=== PATIENT | male | born 1965 | race Caucasian/White ===

== ENCOUNTER 2018-08-06 21:31 | Emergency (ER) | payer OTHER ==
[2018-08-06] MEDS ORDERED: ACETAMINOPHEN 325 MG TABLET (FP) PO ONE (21:40)
--- NOTE | 2018-08-06 21:40 | PDOC ---
Rapid Medical Evaluation Time Seen by Provider: 08/06/18 21:38 Medical Evaluation: 08/06/18 21:38 I have performed a brief in-person evaluation of this patient. The patient presents with a chief complaint of: fall Pertinent physical exam findings:stable and in NAD, non-focal I have ordered the following: tylenol The patient will proceed to the ED for further evaluation.
[2018-08-06 21:42] VITALS: BP 144/82; PULSE 77; TEMP 98; BMI 22.4
[2018-08-06] MEDS ORDERED: ACETAMINOPHEN 325 MG TABLET (FP) ONE (21:45)
[2018-08-06] MEDS ORDERED: oxyCODONE HCL 5 MG TABLET PO ONE (22:09)
[2018-08-06] MEDS ORDERED: LIDOCAINE 5% TOPICAL PATCH TP ONE (22:18)
--- NOTE | 2018-08-06 22:23 | PDOC ---
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) Past History - Past Medical History Allergies/Adverse Reactions: Allergies Allergy/AdvReac Type Severity Reaction Status Date / Time No Known Allergies Allergy Verified 08/06/18 21:42 Home Medications: Ambulatory Orders Cyclobenzaprine HCl [Flexeril -] 10 mg PO TID PRN #21 tablet 08/07/18 Lidocaine 5% Patch [Lidoderm -] 1 patch TP DAILY #30 patch 08/07/18 COPD: No - Suicide/Smoking/Psychosocial Hx Smoking History: Unknown if ever smoked Have you smoked in the past 12 months: No Information on smoking cessation initiated: No Hx Alcohol Use: No Drug/Substance Use Hx: No *Physical Exam - Vital Signs Last Vital Signs Temp Pulse Resp BP Pulse Ox 98.0 F 77 16 144/82 100 08/06/18 21:40 08/06/18 21:40 08/06/18 21:40 08/06/18 21:40 08/06/18 21:40 - Physical Exam General Appearance: No: Apparent Distress HEENT: positive: EOMI, ALEKSANDR Neck: positive: Tender midline Respiratory/Chest: positive: Chest Tender (along L chest wall, no ecchymosis, no palpable step-off), Lungs Clear. negative: Respiratory Distress Cardiovascular: positive: Regular Rhythm, Regular Rate, S1, S2. negative: Murmur Gastrointestinal/Abdominal: positive: Soft, Other (no ecchymosis noted). 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, Fully Oriented, Alert, Normal Mood/ Affect, Motor Strength 5/5 ED Treatment Course - RADIOLOGY Radiology Studies Ordered: Category Date Time Status CERVICAL SPINE CT W/O CONTR [CT] Stat CT Scan 08/06/18 22:[address] WITHOUT CONTRAST [CT] Stat CT Scan 08/06/18 22:[address] W/O CONTRAST [CT] Stat CT Scan 08/06/18 22:[address] W/O CONTRAST [CT] Stat CT Scan 08/06/18 22:09 Ordered - Medications Given in the ED: ED Medications Discontinued Medications Generic Name Dose Route Start Last Admin Trade Name Audrey PRN Reason Stop Dose Admin Acetaminophen 650 mg 08/06/18 21:40 08/06/18 21:50 Tylenol - PO 08/06/18 21:41 650 mg ONCE ONE Administration Medical Decision Making - Medical Decision Making 53 y/o M with no sig pmh presents s/p fall today. 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 States the wooden plank gave out, and patient fell forward, landing in wheelbarrow. Is c/o pain along the spine and L side of chest wall. Denies head trauma, LOC, numbness/tingling/weakness of extremities, abdominal pain, n/v, changes to vision. Concern for possible rib/spinal fracture Was given Tylenol from triage Plan: Patient placed in C-collar, Oxycodone, Lidocaine patch, CT of the full spine and CT chest, reassess 08/06/18 22:20 CT chest/C-spine/T-spine/L-spine showed no fractures Likely muscular sprain Stable for dc 08/07/18 00:43 *DC/Admit/Observation/Transfer Diagnosis at time of Disposition: Fall Qualifiers: Encounter type: initial encounter Qualified Code(s): W19.XXXA - Unspecified fall, initial encounter - Discharge Dispostion Disposition: HOME Condition at time of disposition: Stable Decision to Admit order: No - Prescriptions Prescriptions: Cyclobenzaprine HCl [Flexeril -] 10 mg PO TID PRN #21 tablet PRN Reason: Muscle Spasms Lidocaine 5% Patch [Lidoderm -] 1 patch TP DAILY #30 patch - Referrals Referrals: Peri Lr MD [Staff Physician] - 2 Days - Patient Instructions Printed Discharge Instructions: DI for Back Strain or Sprain Additional Instructions: Thank you for choosing [facility]. It was a pleasure taking care of you. You may take Motrin 600 mg every 6 hours by mouth as needed for mild to moderate pain. Take Motrin with food. Take Flexeril as needed for muscle spasms. This medication can also make you drowsy so please be cautious with driving or performing heavy physical work. Apply Lidocaine patch as needed over area causing most pain - can be used for 12 hours Return to the Emergency Department if your symptoms worsen or persist, weakness of extremities, unable to walk, unable to control bowel or bladder movements or other concerning symptoms. Mayra por elegir el [facility]. Fue un placer cuidar de ti. Puede micaela Motrin 600 mg cada 6 horas por va oral segn sea necesario para el dolor leve a moderado. [place] Motrin con la comida. [place] Flexeril segn sea necesario para los espasmos musculares. Brionna medicamento tambin puede causarle somnolencia, as que tenga cuidado al conducir o realizar trabajos fsicos pesados. Aplique el parche de lidocana segn sea necesario sobre el wayne que causa ms dolor, se puede usar eri 12 horas Regrese al Departamento de Emergencias si nimo sntomas empeoran o persisten, debilidad de las extremidades, no puede caminar, no puede controlar los movimientos del intestino o la vejiga u otros sntomas relacionados. - Post Discharge Activity Forms/Work/School Notes: Back to Work
[2018-08-06] MEDS ORDERED: LIDOCAINE 5% TOPICAL PATCH ONE (22:27)
[2018-08-06] MEDS ORDERED: oxyCODONE HCL 5 MG TABLET ONE (22:27)
== END 2018-08-07 00:50 | disposition home or self-care (01) ==
LOC: JER 21:31
DX: Z04.2 Encounter for examination and observation following work accident (principal)
CPT/HCPCS: 71250-TC; 72125-TC; 72128-TC; 72131-TC; 99281-25

== ENCOUNTER 2018-08-09 14:49 | Emergency (ER) | payer SELFPAY, OTHER | END 2018-08-09 16:25 | disposition home or self-care (01) | LOC: JERFT 14:49 ==

== ENCOUNTER 2018-08-28 05:48 | Emergency (ER) | payer SELFPAY, OTHER | END 2018-08-28 11:35 | disposition home or self-care (01) | LOC: JER 05:48 ==

== ENCOUNTER 2018-09-15 15:06 | Inpatient (IN) | payer OTHER ==
--- NOTE | 2018-09-15 15:26 | PDOC ---
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 Patient did not take anything for pain. Patient report was seen over week ago with back pain due to fall at work and was told everything was fine. Denies shortness of breath, dizziness, headache. Denies new injury or trauma. Denies numbness or tingling sensation. Denies arm weakness. Timing/Duration: 24 hours Past History - Past Medical History Allergies/Adverse Reactions: Allergies Allergy/AdvReac Type Severity Reaction Status Date / Time No Known Allergies Allergy Verified 09/15/18 15:11 Home Medications: Ambulatory Orders Cyclobenzaprine HCl [Flexeril -] 10 mg PO TID PRN #21 tablet 08/07/18 Lidocaine 5% Patch [Lidoderm -] 1 patch TP DAILY #7 patch 08/09/18 Meloxicam [Mobic] 15 mg PO DAILY 7 Days #7 tablet 08/09/18 Methocarbamol [Robaxin -] 500 mg PO TID PRN #21 tablet 09/15/18 Naproxen 500 mg PO BID PRN #20 tablet 09/15/18 COPD: No Diabetes: No HTN: No Hypercholesterolemia: No - Immunization History Immunization Up to Date: Yes - Suicide/Smoking/Psychosocial Hx Smoking History: Current every day smoker Have you smoked in the past 12 months: Yes Number of Cigarettes Smoked Daily: 5 Information on smoking cessation initiated: No Hx Alcohol Use: Yes (Social) Drug/Substance Use Hx: No Review of Systems - Review of Systems Able to Perform ROS?: Yes Is the patient limited Tuvaluan proficient: No Constitutional: No: Malaise, Weakness HEENTM: No: Symptoms Reported, See HPI, Eye Pain, Recent change in vision Respiratory: No: Shortness of Breath, SOB with Exertion, SOB at Rest Cardiac (ROS): No: Symptoms Reported ABD/GI: No: Nausea, Vomiting Musculoskeletal: Yes: Symptoms Reported, See HPI, Muscle Pain (posterior neck), Neck Pain (posterior neck) Neurological: No: Numbness, Paresthesia, Tingling, Dizziness All Other Systems: Reviewed and Negative *Physical Exam - Vital Signs Last Vital Signs Temp Pulse Resp BP Pulse Ox 98 F 78 18 137/73 97 09/15/18 15:08 09/15/18 15:08 09/15/18 15:08 09/15/18 15:08 09/15/18 15:08 - Physical Exam Comments: 09/15/18 15:40 GENERAL: Well developed, well nourished. Awake and alert in moderate acute distress. CARDIOVASCULAR: Regular rate and rhythm. No murmurs, rubs, or gallops. PULMONARY: No evidence of respiratory distress. MUSCULOSKELETAL : Moderate tenderness to bilateral lower paracervical muscle C5- C7 cervical midline to upper thoracic spine of T2. Decreased range of motion of neck due to pain to cervical spine. Bony deformities SKIN: Warm and dry. Normal capillary refill. NEUROLOGICAL: Alert, awake, appropriate. No motor deficits in the lower extremities. Gait is normal without ataxia. PSYCHIATRIC: Cooperative. Good eye contact. Appropriate mood and affect. General Appearance: Yes: Nourished, Appropriately Dressed, Apparent Distress, Moderate Distress Medical Decision Making - Medical Decision Making 09/15/18 15:43 Patient with no significant past medical history present with complaint of worsening bilateral neck pain with stiff neck since yesterday was started as some mild and now has worsening today. Patient did not take anything for pain. Patient report was seen over week ago with back pain due to fall at work and was told everything was fine. Denies shortness of breath, dizziness, headache. Denies new injury or trauma Exam significant for moderate tenderness of bilateral paracervical muscle and cervical mid spine of lower C5 to C7 of cervical spine and upper thoracic spine of T2. Restricted neck movement due to pain to cervical spine. Symptoms likely neck strain with spasm. Toradol 60 mg IM and Robaxin 500 mg by mouth for pain and spasm. X-ray of cervical spine ordered to rule out acute cervical pathology. 09/15/18 16:25 x-ray of cervical spine shows avulsion fracture of of spinous process of C7 of cervical spine. Patient placed in neck collar and call made to neurosurgery for consult 09/15/18 18:[address] Ortiz who advised to do neck CT and will come to see patient. Patient signed out to main ED resident and attending Dr. Matos for follow-up care. Patient with no neuro deficit on exam *DC/Admit/Observation/Transfer Diagnosis at time of Disposition: Neck pain, bilateral, Muscle spasms of neck Cervical spine fracture Qualifiers: Encounter type: initial encounter Cervical vertebra fracture level: C7 Fracture type: closed Fracture morphology: unspecified fracture morphology Fracture alignment: displaced Qualified Code(s): S12.600A - Unspecified displaced fracture of seventh cervical vertebra, initial encounter for closed fracture - Discharge Dispostion Condition at time of disposition: Stable Decision to Admit order: No - Prescriptions Prescriptions: Methocarbamol [Robaxin -] 500 mg PO TID PRN #21 tablet PRN Reason: neck spasm Naproxen 500 mg PO BID PRN #20 tablet PRN Reason: pain - Referrals Referrals: Keith Mcdaniel MD, FAANS [Staff Physician] - - Patient Instructions Print Language: [place] - Post Discharge Activity
[2018-09-15] MEDS ORDERED: KETOROLAC TROMETHAMINE 60 MG/2 ML VIAL IM ONE (15:36)
[2018-09-15] MEDS ORDERED: METHOCARBAMOL 500 MG TABLET PO ONE (15:36)
[2018-09-15] MEDS ORDERED: METHOCARBAMOL 500 MG TABLET ONE (15:37)
[2018-09-15] MEDS ORDERED: KETOROLAC TROMETHAMINE 60 MG/2 ML VIAL ONE (15:38)
[2018-09-15 18:14] LABS: URINE APPEARANCE CLEAR; URINE BILIRUBIN NEGATIVE (NEGATIVE); URINE COLOR YELLOW; URINE GLUCOSE (UA) NEGATIVE (NEGATIVE); URINE KETONE NEGATIVE (NEGATIVE); URINE LEUK ESTERASE NEGATIVE (NEGATIVE); URINE NITRITE NEGATIVE (NEGATIVE); URINE PROTEIN NEGATIVE (NEGATIVE); URINE UROBILINOGEN 0.2 mg/dL (0.2-1.0)
--- NOTE | 2018-09-15 18:20 | PDOC ---
*Physical Exam - Vital Signs Last Vital Signs Temp Pulse Resp BP Pulse Ox 98.7 F 66 16 138/75 97 09/15/18 17:03 09/15/18 17:03 09/15/18 17:03 09/15/18 17:03 09/15/18 17:03 - Physical Exam Comments: 09/15/18 18:29 General Appearance: Nourished. No Apparent Distress HEENT: EOMI, ALEKSANDR. No Pharyngeal Erythema, Tonsillar Exudate, Tonsillar Erythema Neck: C-Collar in place. Midline tenderness to palpation on exam. No Cervical Lymphadenopathy Respiratory/Chest: Lungs Clear, Normal Breath Sounds. No Crackles, Rales, Rhonchi, Wheezing Cardiovascular: Regular Rhythm, Regular Rate. No Murmur, Gallops, Rubs Gastrointestinal/Abdominal: Normal Bowel Sounds, Soft. 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 ED Treatment Course - ADDITIONAL ORDERS Additional order review: Laboratory Results 09/15/18 18:10 Urine Color Yellow Urine Appearance Clear Urine pH 5.0 Ur Specific [place] 1.010 Urine Protein Negative Urine Glucose (UA) Negative Urine Ketones Negative Urine Blood Negative Urine Nitrite Negative Urine Bilirubin Negative Urine Urobilinogen 0.2 Ur Leukocyte Esterase Negative - Medications Given in the ED: ED Medications Discontinued Medications Generic Name Dose Route Start Last Admin Trade Name Freq PRN Reason Stop Dose Admin Ketorolac Tromethamine 60 mg 09/15/18 15:36 09/15/18 15:40 Toradol Injection - IM 09/15/18 15:37 60 mg ONCE ONE Administration Methocarbamol 500 mg 09/15/18 15:36 09/15/18 15:40 Robaxin - PO 09/15/18 15:37 500 mg ONCE ONE Administration Progress Note - Progress Note Progress Note: The patient is a 53 year old male who presented for evaluation of neck pain following a fall at work who was transferred from fast track after being found to have a spinous process fracture. The patient is pending CT scan and neurosurgical consultation. Dr. Mcdaniel with Neurosurgery is aware and will evaluate the patient. Medical Decision Making - Medical Decision Making 09/15/18 20:[address] demonstrates spinous process fractures of C6 and C7 with possible ligamentous disruption as preliminarily read by our office professionals radiologist. We discussed the case with Dr. Meyer with neurosurgery who recommended admission for MRI and further monitoring. The patient will require admission for further management. *DC/Admit/Observation/Transfer Diagnosis at time of Disposition: Neck pain, bilateral, Muscle spasms of neck Cervical spine fracture Qualifiers: Encounter type: initial encounter Cervical vertebra fracture level: C7 Fracture type: closed Fracture morphology: unspecified fracture morphology Fracture alignment: displaced Qualified Code(s): S12.600A - Unspecified displaced fracture of seventh cervical vertebra, initial encounter for closed fracture - Discharge Dispostion Condition at time of disposition: Stable Decision to Admit order: Yes - Prescriptions Prescriptions: Methocarbamol [Robaxin -] 500 mg PO TID PRN #21 tablet PRN Reason: neck spasm Naproxen 500 mg PO BID PRN #20 tablet PRN Reason: pain - Referrals Referrals: Keith Mcdaniel MD, FAANS [Staff Physician] - - Patient Instructions Print Language: MACEDONIAN - Post Discharge Activity
--- NOTE | 2018-09-15 19:02 | PDOC ---
Documentation entered by Jacob Brewer SCRIBE, acting as scribe for Wilfred Matos MD. Wilfred Matos MD: This documentation has been prepared by the Osman hernandez Aiswarya, SCRIBE, under my direction and personally reviewed by me in its entirety. I confirm that the documentation accurately reflects all work, treatment, procedures, and medical decision making performed by me. Attending Attestation - Resident Resident Name: Zelalem Breaux - ED Attending Attestation I have performed the following: I have examined & evaluated the patient, The case was reviewed & discussed with the resident, I agree w/resident's findings & plan, Exceptions are as noted - HPI HPI: 09/15/18 18:58 53-year-old male with no past medical history presents with neck pain. 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 At that time, the patient had diffuse body pain but reports that the pain is improved. Earlier today, patient was reaching for a water bottle when he felt a crack in his neck. Denies any numbness or weakness. Reported persistent pain at the base of his neck. Patient arrived to the ED and was seen by my physician virtual office assistant. 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 The patient was placed in a cervical neck collar. Dr. Mcdaniel from neurosurgery was consulted and requested a CAT scan of the cervical spine and he'll see the patient. Patient currently declines any further pain medications from me. - Physicial Exam PE: 09/15/18 19:00 GENERAL: Awake, alert, and fully oriented, in no acute distress HEAD: No signs of trauma EYES: PERRLA, EOMI, sclera anicteric, conjunctiva clear ENT: Auricles normal inspection, hearing grossly normal, nares patent,Moist mucosa NECK: In c-collar, TTP ~C7. no stepoffs appreciated. LUNGS: Breath sounds equal, clear to auscultation bilaterally. No wheezes, and no crackles HEART: Regular rate and rhythm, normal S1 and S2, no murmurs, rubs or gallops ABDOMEN: Soft, nontender, No guarding, no rebound. No masses EXTREMITIES: Normal range of motion, no edema. No clubbing or cyanosis. No cords, erythema, or tenderness NEUROLOGICAL: Cranial nerves II through XII intact. Normal speech. Normal sensation and strength in upper and lower extremities. SKIN: Warm, Dry, normal turgor, no rashes or lesions noted. - Medical Decision Making 09/15/18 19:01 Vital Signs Temp Pulse Resp BP Pulse Ox 98.7 F 66 16 138/75 97 09/15/18 17:03 09/15/18 17:03 09/15/18 17:03 09/15/18 17:03 09/15/18 17:03 Patient has a cervical spine fracture but neurologically intact. CAT scan is obtain a pending official read. We'll await for neurosurgical consultation. Pending disposition. 09/15/18 20:12 Acute fractures of spinous process of C6 - C7 on CT scan. ?Some soft tissue ligamentous injuries posteriously, which could be better evaluated with an MRI. Dr. Mcdaniel paged with CT results. 09/15/18 20:16 Dr. Mcdaniel recommends admission and MRI of c-spine.
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
--- NOTE | 2018-09-15 22:59 | PN ---
Teaching Attending Note Name of Resident: Surinder Aceves ATTENDING PHYSICIAN STATEMENT I saw and evaluated the patient. Chart, data, imaging reviewed. I reviewed the resident's note and discussed the case with the resident. I agree with the resident's findings and plan as documented. SUBJECTIVE: 53yo man who initially sustained fall at work 08/06/18, fell forward onto chest when pushing wheelbarrow, sustained neck pain after, however initial neck CT was wnl, returned to ER 2 times for pain in neck. This morning was reaching for his water and felt a crack in his neck and fell onto back in severe pain, brought to ER immediately. Describes intermittent shooting electrical pains in all extremities. Dr. Tripp called from ER and recommended brain mri and admission. OBJECTIVE: heent - atraumatic, no tenderness to head or face neck -c spine MSK - no tenderness to palpation of limbs or chest neuro- biceps, patellar reflexes intact b/l, neg babinski tests b/l, normal finger to nose motor 5/5 in all extremities, good handgrip b/l, equal pinprick sensation in lower ext b/l. Last Vital Signs Temp Pulse Resp BP Pulse Ox 98.7 F 66 20 149/85 98 09/15/18 17:03 09/15/18 19:54 09/15/18 19:54 09/15/18 19:54 09/15/18 19:54 CT C spine- Acute fractures of spinous process of C6 - C7 on CT scan. ?Some soft tissue ligamentous injuries posteriously, which could be better evaluated with an MRI. Dr. Mcdaniel paged with CT results. ASSESSMENT AND PLAN: #Acute fractures of spinous process of C6 - C7- no overt neuro deficits appreciated. -admit to med/surg -neurochecks q4hrs -neck immobilization -brain mri -toradol iv prn for pain -iv fluid hydration -type and screen -pt, ptt -scds for dvt ppx
[2018-09-15 23:37] LABS: BASO % 0.8 % (0-2.0); EOS % 2.5 % (0-4.5); HEMATOCRIT 43.6 % (35.4-49); HEMOGLOBIN 14.7 GM/dL (11.7-16.9); LYMPH % 31.9 % (8-40); MCH 31.4 pg (25.7-33.7); MCHC 33.7 g/dl (32.0-35.9); MEAN CELL VOLUME 93.2 fl (80-96); MEAN PLT VOLUME 7.6 fl (7.5-11.1); MONO % 8.5 % (3.8-10.2); NEUT % 56.3 % (42.8-82.8); PLATELET COUNT 331 K/MM3 (134-434); RBC 4.68 M/mm3 (4.00-5.60); RDW 14.2 % (11.9-15.9); WHITE BLOOD COUNT 11.7 K/mm3 (4.0-10.0)
[2018-09-15 23:54] LABS: INR 0.89 (0.83-1.09); PROTHROMBIN TIME (PATIENT) 10.5 SEC (9.7-13.0)
[2018-09-15 23:57] LABS: ACTIVATED PTT 32.5 SECONDS (25.2-36.5)
[2018-09-16] LABS: ALBUMIN 3.5 g/dl (3.4-5.0); BILIRUBIN,TOTAL 0.4 mg/dL (0.2-1); BLOOD UREA NITROGEN 17.1 mg/dL (7-18); CREATININE 0.9 mg/dL (0.55-1.3); TOT PROT 6.8 g/dl (6.4-8.2)
[2018-09-16 01:53] VITALS: BMI 24.7
[2018-09-16] MEDS: KETOROLAC TROMETHAMINE 30 MG/1 ML VIAL IVPUSH SCH ×3 (02:00→18:14)
[2018-09-16 07:19] LABS: HEMOGLOBIN 14.3 GM/dL (11.7-16.9); MCH 31.6 pg (25.7-33.7); MCHC 34.1 g/dl (32.0-35.9); MEAN CELL VOLUME 92.7 fl (80-96); MEAN PLT VOLUME 7.9 fl (7.5-11.1); PLATELET COUNT 339 K/MM3 (134-434); RBC 4.53 M/mm3 (4.00-5.60); RDW 14.3 % (11.9-15.9); WHITE BLOOD COUNT 9.5 K/mm3 (4.0-10.0)
[2018-09-16 07:29] LABS: BLOOD UREA NITROGEN 16.3 mg/dL (7-18); CALCIUM 8.5 mg/dL (8.5-10.1); CREATININE 0.8 mg/dL (0.55-1.3); MAGNESIUM 2.1 mg/dL (1.8-2.4); PHOSPHOROUS 3.8 mg/dL (2.5-4.9); POTASSIUM 4.2 mmol/L (3.5-5.1)
[2018-09-16] MEDS: NICOTINE 21 MG/24 HOURS TOPICAL PATCH TD SCH (09:11)
--- NOTE | 2018-09-16 09:34 | EKG ---
Test Reason : Blood Pressure : / mmHG Vent. Rate : 059 BPM Atrial Rate : 059 BPM P-R Int : 180 ms QRS Dur : 090 ms QT Int : 398 ms P-R-T Axes : 050 073 062 degrees QTc Int : 394 ms SINUS BRADYCARDIA OTHERWISE NORMAL ECG WHEN COMPARED WITH ECG OF 28-AUG-2018 06:04, NO SIGNIFICANT CHANGE WAS FOUND Confirmed by PATRIZIA BERNAL MD ([id number]) on 09/16/2018 9:33:54 AM Referred By: Confirmed By:PATRIZIA BERNAL MD
[2018-09-16] MEDS: DOCUSATE SODIUM 100 MG CAPSULE (FP) PO SCH ×2 (13:19→21:25)
--- NOTE | 2018-09-16 15:06 | PN ---
Teaching Attending Note Name of Resident: Minerva Lim ATTENDING PHYSICIAN STATEMENT I saw and evaluated the patient. I reviewed the resident's note and discussed the case with the resident. I agree with the resident's findings and plan as documented. SUBJECTIVE:c/o chest discomfort by where the collar is touching his chest. no pain or tingling in the arms. denies SoB, feveer, chills, N/V/c/d, palpitations. never had cardiac workup in the past + smoker. no family hx of cardiac disease has not seen a doctor in many years OBJECTIVE: Last Vital Signs Temp Pulse Resp BP Pulse Ox 98.9 F 80 16 149/83 99 09/16/18 14:14 09/16/18 14:14 09/16/18 14:14 09/16/18 14:14 09/16/18 09:00 General NAD HEENT +c-collar in place CV S1 S2 RRR no murmur/rub/gallop +chest wall tenderness just beneath clavicles Lungs CTA B/L no wheezing/rales/rhonchi neuro CN grossly intact,head movement limited due to collar. sensation equal throughout the face and upper arms. strength 5/5 B/L UE ASSESSMENT AND PLAN: 53yo M with no PMH presented after mechanical fall on 08/06 where persistent neck pain and newly identified C6-c7 fracture 1. C6-C7 fracture- not appreciated on initial imaging when pt 1st presented from mechanical fall. now seen on imaging. no neurological deficits. MRI ordered to better evaluate and determine if surgery indicated. neurosurg on board. pain control. keep C-collar in place at this time. 2. leukocytosis- stress induced. no indication for abx 3. DVT ppx- lovenox. will be held if surgery necessary
--- NOTE | 2018-09-16 16:15 | PN ---
Physical Exam: SUBJECTIVE: Patient seen and examined at bedside. Pt was seen with c-spine brace. pt states he has pain in his neck and back. pt also stated he has chest discomfort while breathing or movement. pt also endorsed a headache. OBJECTIVE: Vital Signs Period Temp Pulse Resp BP Sys/Bourne Pulse Ox Last 24 Hr 97.7 F-98.9 F 60-80 16-20 134-149/65-85 96-99 GENERAL: The patient is awake, alert, and fully oriented, in no acute distress. EYES: extraocular movements intact LUNGS: Breath sounds equal, clear to auscultation bilaterally, no wheezes, no crackles, no accessory muscle use. HEART: Regular rate and rhythm, S1, S2 without murmur, rub or gallop. ABDOMEN: Soft, nontender, nondistended, normoactive bowel sounds, no guarding EXTREMITIES: warm, well-perfused, no edema. NEUROLOGICAL: Cranial nerves II through XII grossly intact. Normal speech, gait not observed, motor intact in both UE and LE, sensory intact b/l on face and extremities PSYCH: Normal mood, normal affect. SKIN: Warm, dry, normal turgor, no rashes or lesions noted Laboratory Last Values WBC 9.5 K/mm3 (4.0-10.0) 09/16/18 06:22 RBC 4.53 M/mm3 (4.00-5.60) 09/16/18 06:22 Hgb 14.3 GM/dL (11.7-16.9) 09/16/18 06:22 Hct 42.0 % (35.4-49) 09/16/18 06:22 MCV 92.7 fl (80-96) 09/16/18 06:22 MCH 31.6 pg (25.7-33.7) 09/16/18 06:22 MCHC 34.1 g/dl (32.0-35.9) 09/16/18 06:22 RDW 14.3 % (11.9-15.9) 09/16/18 06:22 Plt Count 339 K/MM3 (134-434) 09/16/18 06:22 MPV 7.9 fl (7.5-11.1) 09/16/18 06:22 Absolute Neuts (auto) 6.6 K/mm3 (1.5-8.0) 09/15/18 23:20 Neutrophils % 56.3 % (42.8-82.8) 09/15/18 23:20 Lymphocytes % 31.9 % (8-40) 09/15/18 23:20 Monocytes % 8.5 % (3.8-10.2) 09/15/18 23:20 Eosinophils % 2.5 % (0-4.5) 09/15/18 23:20 Basophils % 0.8 % (0-2.0) 09/15/18 23:20 Nucleated RBC % 0 % (0-0) 09/15/18 23:20 PT with INR 10.50 SEC (9.7-13.0) 09/15/18 23:20 INR 0.89 (0.83-1.09) 09/15/18 23:20 PTT (Actin FS) 32.5 SECONDS (25.2-36.5) 09/15/18 23:20 D-Dimer 298 ng/ml (0-500) 09/16/18 08:45 Sodium 140 mmol/L (136-145) 09/16/18 06:22 Potassium 4.2 mmol/L (3.5-5.1) 09/16/18 06:22 Chloride 107 mmol/L (98-107) 09/16/18 06:22 Carbon Dioxide 25 mmol/L (21-32) 09/16/18 06:22 Anion Gap 7 MMOL/L (8-16) L 09/16/18 06:22 BUN 16.3 mg/dL (7-18) 09/16/18 06:22 Creatinine 0.8 mg/dL (0.55-1.3) 09/16/18 06:22 Est GFR (CKD-EPI)AfAm 118.20 09/16/18 06:22 Est GFR (CKD-EPI)NonAf 101.99 09/16/18 06:22 Random Glucose 110 mg/dL (74-106) H 09/16/18 06:22 Calcium 8.5 mg/dL (8.5-10.1) 09/16/18 06:22 Phosphorus 3.8 mg/dL (2.5-4.9) 09/16/18 06:22 Magnesium 2.1 mg/dL (1.8-2.4) 09/16/18 06:22 Total Bilirubin 0.4 mg/dL (0.2-1) 09/15/18 23:20 AST 16 U/L (15-37) 09/15/18 23:20 ALT 26 U/L (13-61) 09/15/18 23:20 Alkaline Phosphatase 114 U/L (45-117) 09/15/18 23:20 Troponin I < 0.02 ng/ml (0.00-0.05) 09/16/18 08:45 Total Protein 6.8 g/dl (6.4-8.2) 09/15/18 23:20 Albumin 3.5 g/dl (3.4-5.0) 09/15/18 23:20 Urine Color Yellow 09/15/18 18:10 Urine Appearance Clear 09/15/18 18:10 Urine pH 5.0 (5.0-8.0) 09/15/18 18:10 Ur Specific [place] 1.010 (1.010-1.035) 09/15/18 18:10 Urine Protein Negative (NEGATIVE) 09/15/18 18:10 Urine Glucose (UA) Negative (NEGATIVE) 09/15/18 18:10 Urine Ketones Negative (NEGATIVE) 09/15/18 18:10 Urine Blood Negative (NEGATIVE) 09/15/18 18:10 Urine Nitrite Negative (NEGATIVE) 09/15/18 18:10 Urine Bilirubin Negative (NEGATIVE) 09/15/18 18:10 Urine Urobilinogen 0.2 mg/dL (0.2-1.0) 09/15/18 18:10 Ur Leukocyte Esterase Negative (NEGATIVE) 09/15/18 18:10 Blood Type O POSITIVE 09/16/18 06:22 Antibody Screen Negative 09/15/18 23:20 CT C-Spine: In comparison to a prior CT study of 08/06/2018 interval development of acute, mildly displaced, mildly distracted C7 and T1 spinous process fractures is noted. Mild multilevel degenerative disc space narrowing is seen with associated spondylosis. Small central/left paramedian C3-C4 and small central/ right paramedian C4-C5 disc herniations are noted. Comparison with the previous CT exam is limited in this regard due to partially obscuring artifact. Active Medications Docusate Sodium (Colace -) 100 mg PO TID [facility] Last Admin: 07/01/19 13:19 Dose: 100 mg Ketorolac Tromethamine (Toradol Injection -) 30 mg IVPUSH Q8H-IV [facility] Stop: 09/20/18 01:59 Last Admin: 09/16/18 09:11 Dose: 30 mg Nicotine (Nicoderm Patch -) 21 mg TD DAILY [facility] Last Admin: 09/16/18 09:11 Dose: 21 mg Oxycodone HCl (Roxicodone -) 5 mg PO Q4H PRN PRN Reason: PAIN LEVEL 6-10 ASSESSMENT/PLAN: Pt is 53 yo M presenting to ED with pain in neck. pt initially had a fall on and had neck pain since then. at that time CT was negative for fractures. on 09/15 pt was reaching for water and heard a crack in his neck and came into ED with severe pain.On this admission CT results show Cspine fractures. following with neurosurgery. 1. Acute spinous fracture of C6-C7 -pt wearing c-spine brace, pt on bedrest -neurosurgery on board -awaiting Cervical MRI -pt has roxicodone 5mg PO prn for pain 2. DVT ppx -SCDs Visit type - Emergency Visit Emergency Visit: No - New Patient This patient is new to me today: No - Critical Care Critical Care patient: No
--- NOTE | 2018-09-16 16:46 | EKG ---
Test Reason : Blood Pressure : / mmHG Vent. Rate : 070 BPM Atrial Rate : 070 BPM P-R Int : 164 ms QRS Dur : 088 ms QT Int : 390 ms P-R-T Axes : 025 064 049 degrees QTc Int : 421 ms NORMAL SINUS RHYTHM NORMAL ECG WHEN COMPARED WITH ECG OF 15-SEP-2018 22:46, NO SIGNIFICANT CHANGE WAS FOUND Confirmed by PATRIZIA BERNAL MD ([id number]) on 09/16/2018 4:45:40 PM Referred By: NIKUNJ UGALDE Confirmed By:PATRIZIA BERNAL MD
[2018-09-16] MEDS: oxyCODONE HCL 5 MG TABLET PO PRN (21:25)
--- NOTE | 2018-09-16 21:55 | CONSULT ---
Consult - text type - Consultation Consultation Note: NEUROSURGERY CONSULTATION Jos More is a 53 year old Latin male who was in his usual state of good health until July 2018 when he slipped at work and fell backwards. He recalls a popping sound and intermittent numbness and tingling in his extremities as well as pain in his neck since this time. He has presented to the ER on several occasions and had difficulty in resuming his work duties. He describes progressive posterior headaches. Recently, his pain has been increasing and he returned to the [facility] ER for a fourth visit. 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 Patient is Neurologically nonfocal and has some relief from a cervical collar. MRI ordered. - Continue collar - GI/DVT prophylaxis - Review MRI - Will follow
[2018-09-17] MEDS: KETOROLAC TROMETHAMINE 30 MG/1 ML VIAL IVPUSH SCH ×2 (02:19→09:53)
[2018-09-17] MEDS: oxyCODONE HCL 5 MG TABLET PO PRN ×2 (06:12→20:19)
[2018-09-17] MEDS: DOCUSATE SODIUM 100 MG CAPSULE (FP) PO SCH ×3 (06:13→21:28)
[2018-09-17 07:31] LABS: HEMATOCRIT 41.9 % (35.4-49); HEMOGLOBIN 14.2 GM/dL (11.7-16.9); MCH 31.6 pg (25.7-33.7); MEAN CELL VOLUME 93.2 fl (80-96); MEAN PLT VOLUME 7.9 fl (7.5-11.1); PLATELET COUNT 343 K/MM3 (134-434); RDW 14.4 % (11.9-15.9); WHITE BLOOD COUNT 10.6 K/mm3 (4.0-10.0)
[2018-09-17 08:11] LABS: BLOOD UREA NITROGEN 18.9 mg/dL (7-18); CALCIUM 8.4 mg/dL (8.5-10.1); CREATININE 0.7 mg/dL (0.55-1.3); POTASSIUM 4.3 mmol/L (3.5-5.1)
--- NOTE | 2018-09-17 08:21 | PN ---
Physical Exam: SUBJECTIVE: Patient seen and examined at bedside. pt reports pain is improving but he thinks its from the pain medication that he is taking. OBJECTIVE: Vital Signs Period Temp Pulse Resp BP Sys/Bourne Pulse Ox Last 24 Hr 98.0 F-99.3 F 64-80 16-20 122-149/64-83 97-99 GENERAL: The patient is awake, alert, and fully oriented, in no acute distress. EYES: PERRL, extraocular movements intact, sclera anicteric, conjunctiva clear. No ptosis. NECK: pt wearing neck collar LUNGS: Breath sounds equal, clear to auscultation bilaterally, no wheezes, no crackles, no accessory muscle use. HEART: Regular rate and rhythm, S1, S2 without murmur, rub or gallop. ABDOMEN: Soft, nontender, nondistended, normoactive bowel sounds, no guarding, no rebound EXTREMITIES: 2+ pulses, warm, well-perfused, no edema. NEUROLOGICAL: Cranial nerves II through XII grossly intact. Normal speech, gait not observed. PSYCH: Normal mood, normal affect. SKIN: Warm, dry, normal turgor, no rashes or lesions noted Laboratory Last Values WBC 9.5 K/mm3 (4.0-10.0) 09/16/18 06:22 RBC 4.53 M/mm3 (4.00-5.60) 09/16/18 06:22 Hgb 14.3 GM/dL (11.7-16.9) 09/16/18 06:22 Hct 42.0 % (35.4-49) 09/16/18 06:22 MCV 92.7 fl (80-96) 09/16/18 06:22 MCH 31.6 pg (25.7-33.7) 09/16/18 06:22 MCHC 34.1 g/dl (32.0-35.9) 09/16/18 06:22 RDW 14.3 % (11.9-15.9) 09/16/18 06:22 Plt Count 339 K/MM3 (134-434) 09/16/18 06:22 MPV 7.9 fl (7.5-11.1) 09/16/18 06:22 Absolute Neuts (auto) 6.6 K/mm3 (1.5-8.0) 09/15/18 23:20 Neutrophils % 56.3 % (42.8-82.8) 09/15/18 23:20 Lymphocytes % 31.9 % (8-40) 09/15/18 23:20 Monocytes % 8.5 % (3.8-10.2) 09/15/18 23:20 Eosinophils % 2.5 % (0-4.5) 09/15/18 23:20 Basophils % 0.8 % (0-2.0) 09/15/18 23:20 Nucleated RBC % 0 % (0-0) 09/15/18 23:20 PT with INR 10.50 SEC (9.7-13.0) 09/15/18 23:20 INR 0.89 (0.83-1.09) 09/15/18 23:20 PTT (Actin FS) 32.5 SECONDS (25.2-36.5) 09/15/18 23:20 D-Dimer 298 ng/ml (0-500) 09/16/18 08:45 Sodium 141 mmol/L (136-145) 09/17/18 06:41 Potassium 4.3 mmol/L (3.5-5.1) 09/17/18 06:41 Chloride 108 mmol/L (98-107) H 09/17/18 06:41 Carbon Dioxide 26 mmol/L (21-32) 09/17/18 06:41 Anion Gap 7 MMOL/L (8-16) L 09/17/18 06:41 BUN 18.9 mg/dL (7-18) H 09/17/18 06:41 Creatinine 0.7 mg/dL (0.55-1.3) 09/17/18 06:41 Est GFR (CKD-EPI)AfAm 124.87 09/17/18 06:41 Est GFR (CKD-EPI)NonAf 107.74 09/17/18 06:41 Random Glucose 96 mg/dL (74-106) 09/17/18 06:41 Calcium 8.4 mg/dL (8.5-10.1) L 09/17/18 06:41 Phosphorus 3.8 mg/dL (2.5-4.9) 09/16/18 06:22 Magnesium 2.1 mg/dL (1.8-2.4) 09/16/18 06:22 Total Bilirubin 0.4 mg/dL (0.2-1) 09/15/18 23:20 AST 16 U/L (15-37) 09/15/18 23:20 ALT 26 U/L (13-61) 09/15/18 23:20 Alkaline Phosphatase 114 U/L (45-117) 09/15/18 23:20 Troponin I < 0.02 ng/ml (0.00-0.05) 09/16/18 08:45 Total Protein 6.8 g/dl (6.4-8.2) 09/15/18 23:20 Albumin 3.5 g/dl (3.4-5.0) 09/15/18 23:20 Urine Color Yellow 09/15/18 18:10 Urine Appearance Clear 09/15/18 18:10 Urine pH 5.0 (5.0-8.0) 09/15/18 18:10 Ur Specific [place] 1.010 (1.010-1.035) 09/15/18 18:10 Urine Protein Negative (NEGATIVE) 09/15/18 18:10 Urine Glucose (UA) Negative (NEGATIVE) 09/15/18 18:10 Urine Ketones Negative (NEGATIVE) 09/15/18 18:10 Urine Blood Negative (NEGATIVE) 09/15/18 18:10 Urine Nitrite Negative (NEGATIVE) 09/15/18 18:10 Urine Bilirubin Negative (NEGATIVE) 09/15/18 18:10 Urine Urobilinogen 0.2 mg/dL (0.2-1.0) 09/15/18 18:10 Ur Leukocyte Esterase Negative (NEGATIVE) 09/15/18 18:10 Blood Type O POSITIVE 09/16/18 06:22 Antibody Screen Negative 09/15/18 23:20 Active Medications Docusate Sodium (Colace -) 100 mg PO TID [facility] Last Admin: 09/17/18 06:13 Dose: 100 mg Ketorolac Tromethamine (Toradol Injection -) 30 mg IVPUSH Q8H-IV ROGER Stop: 09/20/18 01:59 Last Admin: 09/17/18 02:19 Dose: 30 mg Nicotine (Nicoderm Patch -) 21 mg TD DAILY [facility] Last Admin: 09/16/18 09:11 Dose: 21 mg Oxycodone HCl (Roxicodone -) 5 mg PO Q4H PRN PRN Reason: PAIN LEVEL 6-10 Last Admin: 09/17/18 06:12 Dose: 5 mg ASSESSMENT/PLAN: Pt is 53 yo M presenting to ED with pain in neck. pt initially had a fall on and had neck pain since then. at that time CT was negative for fractures. on 09/15 pt was reaching for water and heard a crack in his neck and came into ED with severe pain.On this admission CT results show Cspine fractures. following with neurosurgery. recent MRI results show C7-T1 spinous process fracture. 1. Acute spinous process fracture of C7-T1 -pt wearing c-spine brace, pt on bedrest -neurosurgery on board, possible surgery , awaiting decision from patient -pt has roxicodone 5mg PO prn for pain 2. DVT ppx -SCDs Visit type - Emergency Visit Emergency Visit: No - New Patient This patient is new to me today: No - Critical Care Critical Care patient: No
[2018-09-17] MEDS: NICOTINE 21 MG/24 HOURS TOPICAL PATCH TD SCH (09:53)
--- NOTE | 2018-09-17 13:22 | PN ---
Progress Note (short form) - Note Progress Note: Patient remains Neurologically stable and is ambulating without assistance. He has improvement in his neck pains with medications and his collar. MRI demonstrates acute C7 & T1 spinous process fractures with no acute cord compression. There is some spondylosis throughout the subaxial Cervical spine with disc bulges and hypertrophic posterior longitudinal ligament which encroaches upon the ventral and dorsal CSF spaces and aggravates a congenitally narrow spinal canal. 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 I suggest that he avoid lifting and wear the collar for one month at which point I can see him in the office for further evaluation. I explained that without intervention, he may require 2-3 months of healing with the collar and lifting restrictions. I also explained that a posterior decompression and stabilization may afford him the option to reduce his time in the collar and possibly return to work in 1 month. I would not push him towards surgery and discussed the risks, benefits and alternatives in great detail with a medical services manager. All questions were answered. Informed consent was obtained. I am willing to speak with his boss, Arturo, at the patient's request to outline the nature of the injury and to request modification of his work duties. The patient requests that I speak with his boss prior to deciding upon a plan of care.
--- NOTE | 2018-09-17 16:17 | PN ---
Teaching Attending Note Name of Resident: Minerva Lim ATTENDING PHYSICIAN STATEMENT I saw and evaluated the patient. I reviewed the resident's note and discussed the case with the resident. I agree with the resident's findings and plan as documented. SUBJECTIVE: Some discomfort around wearing of the collar. No numbness/tingling/ weakness UEs. OBJECTIVE: Afebrile, Hemodynamically Stable. Last Vital Signs Temp Pulse Resp BP Pulse Ox 97.2 F L 72 18 134/72 97 09/17/18 14:05 09/17/18 14:05 09/17/18 09:00 09/17/18 14:09/16/18 21:00 HEENT - C-Collar in place. EOMI. Sensation intact. CN intact. Heart - S1, S2, RRR Lungs - clear to auscultation. Abdomen - Soft, non-tender. Bowel Sounds normal. Extremities - no edema no calf tenderness Neuro - AAO x 3. Tone/Power normal all 4 extremities. Laboratory Results - last 24 hr 09/17/18 09/17/18 06:41 06:41 WBC 10.6 H RBC 4.50 Hgb 14.2 Hct 41.9 MCV 93.2 MCH 31.6 MCHC 34.0 RDW 14.4 Plt Count 343 MPV 7.9 Sodium 141 Potassium 4.3 Chloride 108 H Carbon Dioxide 26 Anion Gap 7 L BUN 18.9 H Creatinine 0.7 Est GFR (CKD-EPI)AfAm 124.87 Est GFR (CKD-EPI)NonAf 107.74 Random Glucose 96 Calcium 8.4 L Current Medications Generic Name Dose Route Start Last Admin Trade Name Freq PRN Reason Stop Dose Admin Docusate Sodium 100 mg 09/16/18 14:00 09/17/18 14:48 Colace - PO 100 mg TID ROGER Administration Ketorolac Tromethamine 30 mg 09/16/18 02:00 09/17/18 09:53 Toradol Injection - IVPUSH 09/20/18 01:59 30 mg Q8H-IV ROGER Administration Nicotine 21 mg 09/16/18 10:00 09/17/18 09:53 Nicoderm Patch - TD 21 mg DAILY ROGER Administration Oxycodone HCl 5 mg 09/16/18 12:33 09/17/18 06:12 Roxicodone - PO 5 mg Q4H PRN Administration PAIN LEVEL 6-10 ASSESSMENT AND PLAN: 53 year old male with no significant PMH, admitted s/p mechanical fall 08/06 with complaints of persistent neck pain. 1. Acute C7/T1 Spinous Process fracture. No neurological deficits. Options for management discussed with Dr. Mcdaniel - patient weighing risks/ benefits of surgical intervention versus conservative management, especially with respect to recuperation time and need to return to work as soon as medically safe to do so. C-Collar in place. If conservative management is decided, patient can be discharged today with C- collar and NeuroSx out-patient follow up.
[2018-09-18] MEDS: oxyCODONE HCL 5 MG TABLET PO PRN (00:16)
[2018-09-18] MEDS: DOCUSATE SODIUM 100 MG CAPSULE (FP) PO SCH ×2 (06:20→13:34)
[2018-09-18 07:39] LABS: HEMATOCRIT 42.1 % (35.4-49); HEMOGLOBIN 14.2 GM/dL (11.7-16.9); MCH 31.4 pg (25.7-33.7); MCHC 33.7 g/dl (32.0-35.9); MEAN CELL VOLUME 93.2 fl (80-96); MEAN PLT VOLUME 7.9 fl (7.5-11.1); PLATELET COUNT 346 K/MM3 (134-434); RBC 4.51 M/mm3 (4.00-5.60); RDW 14.5 % (11.9-15.9); WHITE BLOOD COUNT 10.2 K/mm3 (4.0-10.0)
[2018-09-18 08:02] LABS: ALBUMIN 3.2 g/dl (3.4-5.0); BILIRUBIN,TOTAL 0.4 mg/dL (0.2-1); BLOOD UREA NITROGEN 15.2 mg/dL (7-18); CALCIUM 8.6 mg/dL (8.5-10.1); CREATININE 0.7 mg/dL (0.55-1.3); MAGNESIUM 2.3 mg/dL (1.8-2.4); PHOSPHOROUS 3.7 mg/dL (2.5-4.9); POTASSIUM 4.5 mmol/L (3.5-5.1); TOT PROT 6.2 g/dl (6.4-8.2)
[2018-09-18] MEDS: NICOTINE 21 MG/24 HOURS TOPICAL PATCH TD SCH (10:52)
--- NOTE | 2018-09-18 14:23 | DS ---
Physical Exam: SUBJECTIVE: Patient seen and examined bedside. Pt still endorses pain in his neck. pt denies dizziness. OBJECTIVE: Vital Signs Period Temp Pulse Resp BP Sys/Bourne Pulse Ox Last 24 Hr 97.9 F-98.1 F 60-84 18-20 111-121/55-61 98-98 PHYSICAL EXAM GENERAL: The patient is awake, alert, and fully oriented, in no acute distress. NECK: pt seen with cervical collar LUNGS: Breath sounds equal, clear to auscultation bilaterally, no wheezes, no crackles, no accessory muscle use. HEART: Regular rate and rhythm, S1, S2 without murmur, rub or gallop. ABDOMEN: Soft, nontender, nondistended, normoactive bowel sounds EXTREMITIES: 2+ pulses, warm, well-perfused, no edema. NEUROLOGICAL: Cranial nerves II through XII grossly intact. Normal speech, gait not observed. PSYCH: Normal mood, normal affect. SKIN: Warm, dry, normal turgor, no rashes or lesions noted. LABS Laboratory Results - last 24 hr 09/18/18 09/18/18 06:36 06:36 WBC 10.2 H RBC 4.51 Hgb 14.2 Hct 42.1 MCV 93.2 MCH 31.4 MCHC 33.7 RDW 14.5 Plt Count 346 MPV 7.9 Sodium 138 Potassium 4.5 Chloride 106 Carbon Dioxide 27 Anion Gap 5 L BUN 15.2 Creatinine 0.7 Est GFR (CKD-EPI)AfAm 124.87 Est GFR (CKD-EPI)NonAf 107.74 Random Glucose 93 Calcium 8.6 Phosphorus 3.7 Magnesium 2.3 Total Bilirubin 0.4 AST 12 L ALT 23 Alkaline Phosphatase 94 Total Protein 6.2 L Albumin 3.2 L MR cervical spine: Acute C7 and T1 spinous process fractures are noted HOSPITAL COURSE: Date of Admission:09/15/18 Pt is 53 yo M presenting to ED with pain in neck. pt initially had a fall on and had neck pain since then. At that time CT was negative for fractures. On 09/15 pt was reaching for water and heard a crack in his neck and came into ED with severe pain.On this admission CT results show C-spine fractures. While admitted the pt was followed with neurosurgery. While admitted the pt had an MRI. MRI results show C7-T1 spinous process fracture. Dr. Liao discussed with the pt possible elective procedure. The pt is continuing conservative managment. The patient should continue to wear a C spine collar. Pt should avoid strenuous work or exercise and should avoid lifting or twisting his neck. The pt must follow up with Dr. Liao outpatient. Date of Discharge: 09/18/18 Minutes to complete discharge: 38 Discharge Summary Reason For Visit: NECK PAIN Current Active Problems Cervical spine fracture (Acute) Neck pain, bilateral (Acute) Condition: Stable - Instructions Diet, Activity, Other Instructions: You presented to the hospital with neck pain. Your imaging revealed a fracture in the C7 and T1 bones of your neck. You were evaluated by neurosurgery and surgery was not indicated at this time. Follow up with the following physicians: 1. PCP in one week 2. Neurosurgery (Dr. Liao) to further manage your neck fracture--PLEASE CALL AND SCHEDULE FOLLOW UP, YOUR ORDER IS NOT COMPLETE UNTIL YOU DO SO. Imagin. You had an MRI of your neck (cervical spine) which showed a fracture of bones in your neck ( C7-T1) Activity/Diet: 1. You have to keep the cervical collar on your neck for your neck to heal UNTIL NEUROSURGERY SAYS IT IS OK TO REMOVE 2. Avoid strenuous work and exercise INCLUDING LIFTING OR ROTATING YOUR NECK You are being discharged home. Please return to the ER if you have any signs or symptoms of chest pain, shortness of breath, uncontrollable fever, chills, nausea, vomiting, numbness, tingling, or weakness in any part of your body, changes in vision, or slurred speech. Please return to the ER if symptoms persist, worsen, or new symptoms arise. Disposition: HOME - Home Medications Comprehensive Discharge Medication List: Ambulatory Orders Cyclobenzaprine HCl [Flexeril -] 10 mg PO TID PRN #21 tablet 08/07/18 Lidocaine 5% Patch [Lidoderm -] 1 patch TP DAILY #7 patch 08/09/18 Meloxicam [Mobic] 15 mg PO DAILY 7 Days #7 tablet 08/09/18 Methocarbamol [Robaxin -] 500 mg PO TID PRN #21 tablet 09/15/18 Naproxen 500 mg PO BID PRN #20 tablet 09/15/18 This patient is new to me today: No Emergency Visit: No Critical Care patient: No - Discharge Referral Referred to [facility] Med [facility] No
[2018-09-18 14:53] VITALS: BP 118/60; PULSE 68; TEMP 98.4
--- NOTE | 2018-09-18 15:58 | PN ---
Teaching Attending Note Name of Resident: Minerva Lim ATTENDING PHYSICIAN STATEMENT I saw and evaluated the patient. I reviewed the resident's note and discussed the case with the resident. I agree with the resident's findings and plan as documented. SUBJECTIVE: No complaints. No numbness/tingling/weakness UEs. OBJECTIVE: Afebrile, Hemodynamically Stable. Last Vital Signs Temp Pulse Resp BP Pulse Ox 98.4 F 68 18 118/60 98 09/18/18 14:00 09/18/18 14:00 09/18/18 14:00 09/18/18 14:00 09/18/18 09:00 HEENT - C-Collar in place. EOMI. Sensation intact. CN intact. Heart - S1, S2, RRR Lungs - clear to auscultation. Abdomen - Soft, non-tender. Bowel Sounds normal. Extremities - no edema no calf tenderness Neuro - AAO x 3. Tone/Power/Sensation normal all 4 extremities. Laboratory Results - last 24 hr 09/18/18 09/18/18 06:36 06:36 WBC 10.2 H RBC 4.51 Hgb 14.2 Hct 42.1 MCV 93.2 MCH 31.4 MCHC 33.7 RDW 14.5 Plt Count 346 MPV 7.9 Sodium 138 Potassium 4.5 Chloride 106 Carbon Dioxide 27 Anion Gap 5 L BUN 15.2 Creatinine 0.7 Est GFR (CKD-EPI)AfAm 124.87 Est GFR (CKD-EPI)NonAf 107.74 Random Glucose 93 Calcium 8.6 Phosphorus 3.7 Magnesium 2.3 Total Bilirubin 0.4 AST 12 L ALT 23 Alkaline Phosphatase 94 Total Protein 6.2 L Albumin 3.2 L Discharge Medications Medication Instructions Recorded Cyclobenzaprine HCl [Flexeril -] 10 mg PO TID PRN #21 tablet 08/07/18 Lidocaine 5% Patch [Lidoderm -] 1 patch TP DAILY #7 patch 08/09/18 Meloxicam [Mobic] 15 mg PO DAILY 7 Days #7 tablet 08/09/18 Methocarbamol [Robaxin -] 500 mg PO TID PRN #21 tablet 09/15/18 Naproxen 500 mg PO BID PRN #20 tablet 09/15/18 ASSESSMENT AND PLAN: 53 year old male with no significant PMH, admitted s/p mechanical fall 08/06 with complaints of persistent neck pain. Acute C7/T1 Spinous Process fracture. No neurological deficits. Options for management discussed with Dr. Mcdaniel - decision made for conservative management. Medically and Neurologically stable for discharge with C-Collar in place, with [facility] out-patient follow up.
== END 2018-09-18 15:21 | disposition home or self-care (01) | DRG 347 ==
LOC: JERFT 15:06 → JER 15:06 → JERBED 20:32 → J6S 09-16 01:18
PROVIDERS: ADMIT Internal Medicine
DX: S12.600A Unspecified displaced fracture of seventh cervical vertebra, initial encounter for closed fracture (principal); S22.019A Unspecified fracture of first thoracic vertebra, initial encounter for closed fracture; M47.812 Spondylosis without myelopathy or radiculopathy, cervical region; W18.39XA Other fall on same level, initial encounter; M24.28 Disorder of ligament, vertebrae; Y93.89 Activity, other specified; Y92.69 Other specified industrial and construction area as the place of occurrence of the external cause; Y99.0 Civilian activity done for income or pay; F17.210 Nicotine dependence, cigarettes, uncomplicated; R03.0 Elevated blood-pressure reading, without diagnosis of hypertension; R51 Headache
CPT/HCPCS: 36415; 72050-TC-FY; 72125-TC; 72141-TC; 80048; 80053; 81003; 83735; 84100; 84484; 85025; 85027; 85379; 85610; 85730; 86850; 86900; 86901; 93005; 93010; 97116-GP; 97161-GP; 99283-25